=== PATIENT | female | born 1970 | race African-American/Black ===

== ENCOUNTER 2020-01-13 10:42 | Outpatient (CLI) | payer MEDICARE, BC ==
--- NOTE | 2020-01-13 12:11 | ULT ---
TRANSABDOMINAL AND TRANSVAGINAL PELVIC ULTRASOUND: Date: 01/13/2020 INDICATION: History of left oophorectomy; reevaluate lesion within the right ovary. COMPARISON: Prior CT of abdomen and pelvis dated 11/20/2019. Pelvic ultrasound dated 07/31/2012. FINDINGS: The right ovary measures 3.1 x 3.1 x 2.2 cm with normal vascular flow. There is a mildly complex cyst within the right ovary measuring 1.7 x 1.0 x 1.9 cm. The left ovary is surgically absent. There is mild free fluid in the pelvis. The uterus is not identified. IMPRESSION: 1. Complex cyst within the right ovary measuring up to 1.9 cm. As a conservative measure, follow-up pelvic ultrasound in 6-8 weeks is recommended to document full resolution. 2. Mild free fluid in the pelvis. 3. Nonvisualization of the uterus and left ovary suspicious for hysterectomy or left oophorectomy. R ecommend correlation with clinical examination. POS: [facility]
== END 2020-01-13 10:43 | disposition home or self-care (01) ==
LOC: BICULT 10:42
PROVIDERS: ATTEND Family Medicine
DX: N83.8 Other noninflammatory disorders of ovary, fallopian tube and broad ligament (principal); N83.201 Unspecified ovarian cyst, right side
CPT/HCPCS: 76856